=== PATIENT | male | born 1990 | race Two or more races ===

== ENCOUNTER 2018-01-24 17:18 | Inpatient (IN) ==
[2018-01-24 18:16] LABS: Baso # (Auto) 0.2 th/mm3 (0.0-0.2); Baso % (Auto) 1.3 % (0.0-2.0); Eos # (Auto) 0.1 th/mm3 (0.0-0.4); Eos % (Auto) 0.8 % (0.0-4.0); Hematocrit 46.2 % (39.0-51.0); Hemoglobin 15.7 gm/dL (13.0-17.0); Lymph # (Auto) 1.7 th/mm3 (1.0-4.8); Lymph % (Auto) 11.3 % (9.0-44.0); Mean Corpuscular Hemoglobin 31.5 pg (27.0-34.0); Mean Corpuscular Volume 92.6 fL (80.0-100.0); Mean Platelet Volume 7.4 fL (7.0-11.0); Mono % (Auto) 6.5 % (0.0-8.0); Neut # (Auto) 12.4 th/mm3 (1.8-7.7); Neut % (Auto) 80.1 % (16.0-70.0); Platelet Count 313 th/mm3 (150-450); Red Blood Count 4.99 mil/mm3 (4.50-5.90); Red Cell Distribution Width 11.5 % (11.6-17.2); White Blood Count 15.4 th/mm3 (4.0-11.0)
[2018-01-24 18:24] LABS: Chloride 104 meq/L (98-107); Potassium 3.8 meq/L (3.5-5.1); Sodium 139 meq/L (136-145)
--- NOTE | 2018-01-24 18:24 | XR ---
EXAM DATE: 01/24/2018 5:44 PM EDT AGE/SEX: 27 years / Male INDICATIONS: Patient has red, swollen right knee that is warm to touch, and no history of trauma. CLINICAL DATA: This is the patient's initial encounter. Patient reports that signs and symptoms have been present for 2 days and indicates a pain score of 10/10. MEDICAL/SURGICAL HISTORY: None. None. COMPARISON: No prior exams available for comparison. FINDINGS: There is no fracture or subluxation of the right knee. Prepatellar soft tissues are swollen and edema tous. No significant joint effusion demonstrated. CONCLUSION: Apparent prepatellar bursitis. No fracture or other bony abnormality demonstrated. Electronically signed by: Chao Nagel MD 01/24/2018 6:22 PM EDT
[2018-01-24 18:27] LABS: Anion Gap 12 meq/L (5-15); Blood Urea Nitrogen 6 mg/dL (7-18); Calcium 8.2 mg/dL (8.5-10.1); Glucose,Random 84 mg/dL (74-106)
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
[2018-01-24 18:31] LABS: Glomerular Filtration Rate Greater Than 89 mL/min (>89)
[2018-01-24] MEDS ORDERED: Morphine Inj 4 MG/ML Vial IV.PUSH ONE (18:41)
[2018-01-24] MEDS ORDERED: Vancomycin Consult Pharmacy OTHER PRN (18:53)
[2018-01-24] MEDS ORDERED: Vancomycin Inj 1 GM/200 ML PIGGYBACK IV.SIG SCH (19:00)
[2018-01-24] MEDS: Heparin - SQ 10,000 UNITS/ML Vial SQ SCH (19:13)
[2018-01-24] MEDS: Sod Chloride 0.9% Inj 1,000 ML IV.CONT SCH (19:13)
[2018-01-24] MEDS: Piperacil/Tazo 3.375 GM Premix 50 ML IV.SIG SCH (19:14)
[2018-01-24] MEDS: oxyCODONE/Acetaminophen 10/325 Tablet PO PRN (19:49)
[2018-01-24] MEDS: Vancomycin Inj 1,600 MG in Sodium Chlor 0.9% Inj 500 ML IV.SIG SCH (21:58)
[2018-01-25] MEDS: oxyCODONE/Acetaminophen 10/325 Tablet PO PRN ×5 (00:29→20:33)
[2018-01-25] MEDS: Melatonin 5 MG Tablet PO PRN ×2 (01:11→21:45)
[2018-01-25] MEDS: Piperacil/Tazo 3.375 GM Premix 50 ML IV.SIG SCH ×3 (04:28→20:31)
[2018-01-25 07:06] LABS: Baso # (Auto) 0.1 th/mm3 (0.0-0.2); Baso % (Auto) 0.4 % (0.0-2.0); Eos # (Auto) 0.1 th/mm3 (0.0-0.4); Eos % (Auto) 0.9 % (0.0-4.0); Hematocrit 41.5 % (39.0-51.0); Lymph # (Auto) 1.8 th/mm3 (1.0-4.8); Lymph % (Auto) 13.8 % (9.0-44.0); Mean Corpuscular HGB Conc 33.8 % (32.0-36.0); Mean Corpuscular Hemoglobin 31.4 pg (27.0-34.0); Mean Corpuscular Volume 92.9 fL (80.0-100.0); Mean Platelet Volume 7.9 fL (7.0-11.0); Mono # (Auto) 1.1 th/mm3 (0.0-0.9); Mono % (Auto) 8.7 % (0.0-8.0); Neut # (Auto) 9.6 th/mm3 (1.8-7.7); Neut % (Auto) 76.2 % (16.0-70.0); Platelet Count 289 th/mm3 (150-450); Red Blood Count 4.46 mil/mm3 (4.50-5.90); Red Cell Distribution Width 11.3 % (11.6-17.2); White Blood Count 12.7 th/mm3 (4.0-11.0)
[2018-01-25 07:19] LABS: Chloride 103 meq/L (98-107); Potassium 3.6 meq/L (3.5-5.1); Sodium 138 meq/L (136-145)
[2018-01-25 07:26] LABS: Albumin 3.1 g/dL (3.4-5.0); Anion Gap 9 meq/L (5-15); Calcium 8.1 mg/dL (8.5-10.1); Carbon Dioxide 26.3 meq/L (21.0-32.0); Glucose,Random 85 mg/dL (74-106)
[2018-01-25 07:29] LABS: Alanine Aminotransferase 18 U/L (12-78); Aspartate Aminotransferase 103 U/L (15-37); Glomerular Filtration Rate Greater Than 89 mL/min (>89)
[2018-01-25 07:30] LABS: Total Protein 7.6 g/dL (6.4-8.2)
[2018-01-25 07:31] LABS: Blood Urea Nitrogen 6 mg/dL (7-18)
[2018-01-25 07:32] LABS: Alkaline Phosphatase 77 U/L (45-117)
[2018-01-25] MEDS: Lactobacillus Acidophilus/L. Spores Tablet PO SCH ×3 (08:06→17:34)
[2018-01-25] MEDS: Heparin - SQ 10,000 UNITS/ML Vial SQ SCH ×2 (08:06→08:12)
[2018-01-25] MEDS: Sod Chloride 0.9% Inj 1,000 ML IV.CONT SCH (08:07)
[2018-01-25] MEDS: Vancomycin Inj 1,600 MG in Sodium Chlor 0.9% Inj 500 ML IV.SIG SCH ×2 (08:24→21:44)
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
[2018-01-25] MEDS ORDERED: Gadobutrol PF 10 MMOL/10 ML Vial (for RAD) IV.SIG ONE (15:06)
--- NOTE | 2018-01-25 15:52 | MR ---
EXAM DATE: 01/25/2018 1:53 PM EDT AGE/SEX: 27 years / Male INDICATIONS: Abscess. Post drainage procedure done yesterday. CLINICAL DATA: This is the patient's initial encounter. Patient reports that signs and symptoms have been present for 3 days and indicates a pain score of 9/10. MEDICAL/SURGICAL HISTORY: None. . Rt ankle sx. COMPARISON: [facility]PO, KNEE LIMITED LEFT 1/2V, 01/24/2018. . TECHNIQUE: Multiplanar, multisequence MRI examination was performed with contrast and after the intr avenous administration of 10 ml Gadavist (gadobutrol) contrast as a single exam dose. FINDINGS: Cruciate Ligaments: ACL and PCL are intact. Menisci: Medial and lateral menisci are intact. Collateral Ligaments: MCL and LCL complexes are intact. Marrow/Cartilage: Bone marrow signal is homogeneous and unremarkable. Articular cartilage is unrema rkable. Other: There is a small joint effusion. Extensor mechanism is intact. Post Contrast: There is a focal nonenhancing abscess in the anterior lateral soft tissues along the lateral margin of the patella. This measures up to 1.6 x 0.9 cm on the axial images there is intense surrounding enhancement. There is extensive surrounding soft tissue swelling. CONCLUSION: 1. Focal nonenhancing abscess in the anterior lateral soft tissues. There is extensive surrounding s oft tissue swelling. 2. Small joint effusion. Electronically signed by: Sathish Mi MD 01/25/2018 3:51 PM EDT
[2018-01-25] MEDS ORDERED: Sod Chloride 0.9% Inj 1,000 ML IV.CONT SCH (16:17)
[2018-01-25] MEDS: HYDROmorphone PF Inj 2 MG/ML Vial IV.PUSH PRN ×2 (16:25→21:45)
--- NOTE | 2018-01-25 17:19 | P.PN ---
Subjective Interval history: NOT SEEN Physical Exam Vital signs: Vital Signs 01/24/18 17:25 01/24/18 20:41 01/24/18 20:45 Temperature 99.2 F 98.8 F Pulse Rate 103 H 78 98 H Respiratory Rate 18 18 Blood Pressure 150/94 H 138/87 141/82 H Pulse Oximetry 98 98 97 01/25/18 00:00 01/25/18 08:00 01/25/18 12:55 Temperature 98.6 F 98.3 F 98.8 F Pulse Rate 93 H 82 88 Respiratory Rate 20 16 16 Blood Pressure 133/63 123/84 125/70 Pulse Oximetry 98 98 100 Intake & Output 01/24/18 01/25/18 01/25/18 18:59 06:59 18:59 Intake Total 1576 / 1576 2065 / 2065 Output Total 500 / 500 650 / 650 Balance 1076 / 1076 1416 / 1416 Weight 99.2 kg 95 kg Intake: IV 616 / 616 2065 NS Inj 1,000 ML @ 75 mls/hr IV. 1500 / 1500 CONT .[id number] [facility] Rx#: [id number] Zosyn 3.375 GM Premix 50 ML @ 100 / 100 50 / 50 100 mls/hr IV.SIG Q8H [facility] Rx#: [id number] Vancomycin Inj 1,600 MG In NS 516 / 516 516 / 516 Inj 500 ML @ 250 mls/hr IV.SIG Q12H [facility] Rx#:[id number] Oral 960 / 960 Output: Urine 500 / 500 650 / 650 Other: Weight On Admission 97.6 kg Narrative: GENERAL: NAD, A&Ox3 HEAD: Normocephalic. NECK: Supple, trachea midline. No lymphadenopathy. EYES: No scleral icterus. No injection or drainage. CARDIOVASCULAR: Regular rate and rhythm without murmurs, gallops, or rubs. RESPIRATORY: Breath sounds equal bilaterally. No accessory muscle use. GASTROINTESTINAL: Abdomen soft, non-tender, nondistended. MUSCULOSKELETAL: No cyanosis, or edema. SKIN: Warm and dry. erythema, induration, and drainage of right knee, superior to the patella and lateral. NEURO: No focal neurological deficits. Results - Labs CBC & Chem 7: 01/25/18 05:34 01/25/18 05:34 Laboratory Results - last 24 hr 01/24/18 01/24/18 01/24/18 18:05 18:05 18:05 CBC w Diff Auto diff final WBC 15.4 H RBC 4.99 Hgb 15.7 Hct 46.2 MCV 92.6 MCH 31.5 MCHC 34.0 RDW 11.5 L Plt Count 313 MPV 7.4 Neut % (Auto) 80.1 H Lymph % (Auto) 11.3 [place] % (Auto) 6.5 Eos % (Auto) 0.8 Baso % (Auto) 1.3 Neut # (Auto) 12.4 H Lymph # (Auto) 1.7 [place] # (Auto) 1.0 H Eos # (Auto) 0.1 Baso # (Auto) 0.2 WBC Differential . Differential Comment . Sodium 139 Potassium 3.8 Chloride 104 Carbon Dioxide 23.0 Anion Gap 12 BUN 6 L Creatinine 0.74 Estimated GFR Greater than 89 Random Glucose 84 Lactic Acid 1.7 Calcium 8.2 L Total Bilirubin AST ALT Alkaline Phosphatase Total Protein Albumin 01/25/18 01/25/18 05:34 05:34 CBC w Diff Auto diff final WBC 12.7 H RBC 4.46 L Hgb 14.0 Hct 41.5 MCV 92.9 MCH 31.4 MCHC 33.8 RDW 11.3 L Plt Count 289 MPV 7.9 Neut % (Auto) 76.2 H Lymph % (Auto) 13.8 [place] % (Auto) 8.7 H Eos % (Auto) 0.9 Baso % (Auto) 0.4 Neut # (Auto) 9.6 H Lymph # (Auto) 1.8 [place] # (Auto) 1.1 H Eos # (Auto) 0.1 Baso # (Auto) 0.1 WBC Differential . Differential Comment . Sodium 138 Potassium 3.6 Chloride 103 Carbon Dioxide 26.3 Anion Gap 9 BUN 6 L Creatinine 0.65 Estimated GFR Greater than 89 Random Glucose 85 Lactic Acid Calcium 8.1 L Total Bilirubin 0.9 AST 103 H ALT 18 Alkaline Phosphatase 77 Total Protein 7.6 Albumin 3.1 L Microbiology 01/24/18 17:58 Abscess - Knee Gram Stain - Final 01/24/18 17:58 Abscess - Knee Wound Culture - Preliminary S. aureus MRSA Group A beta Strep 01/24/18 18:00 Blood - Peripheral Aerobic Blood Culture - Preliminary No growth in 1 day 01/24/18 18:00 Blood - Peripheral Anaerobic Blood Culture - Preliminary No growth in 1 day 01/24/18 18:05 Blood - Peripheral Aerobic Blood Culture - Preliminary No growth in 1 day 01/24/18 18:05 Blood - Peripheral Anaerobic Blood Culture - Preliminary No growth in 1 day - Imaging Impressions Knee X-Ray 01/24/18 17:44 CONCLUSION: Apparent prepatellar bursitis. No fracture or other bony abnormality demonstrated. Knee MRI 01/25/18 00:00 CONCLUSION: 1. Focal nonenhancing abscess in the anterior lateral soft tissues. There is extensive surrounding soft tissue swelling. 2. Small joint effusion. Assessment and Plan - Assessment (1) Cellulitis of knee, right Code(s): L03.115 - Cellulitis of right lower limb Status: Acute (2) Leukocytosis Code(s): D72.829 - Elevated white blood cell count, unspecified Status: Acute - Plan 27-year-old male admitted secondary to acute cellulitis Acute cellulitis right knee Leukocytosis Possible abscess Obtain MRI to evaluate for deep abscess Continue vancomycin Monitor clinically for improvement Probiotics As needed pain treatments Consider surgical consult if drainage is needed Monitor cultures DVT prophylaxis Heparin (2) Leukocytosis Qualifiers: Leukocytosis type: unspecified Qualified Code(s): D72.829 - Elevated white blood cell count, unspecified
[2018-01-26] MEDS: oxyCODONE/Acetaminophen 10/325 Tablet PO PRN ×3 (00:39→08:44)
[2018-01-26] MEDS: HYDROmorphone PF Inj 2 MG/ML Vial IV.PUSH PRN ×2 (01:32→05:53)
[2018-01-26] MEDS: Piperacil/Tazo 3.375 GM Premix 50 ML IV.SIG SCH (04:40)
[2018-01-26 08:25] VITALS: BP 134/68; PULSE 81; RESP 18; TEMP 96.7; O2SAT 100
[2018-01-26] MEDS: Vancomycin Inj 1,600 MG in Sodium Chlor 0.9% Inj 500 ML IV.SIG SCH (08:43)
[2018-01-26] MEDS: Lactobacillus Acidophilus/L. Spores Tablet PO SCH (08:44)
[2018-01-26] MEDS ORDERED: Pharmacy Ordered Lab Info OTHER ONE (08:45)
--- NOTE | 2018-01-26 10:29 | P.PN ---
Subjective Interval history: Follow-up right knee cellulitis/abscess. States he is doing okay. Redness and swelling much improved about 75% better. Pain also under control. Patient advised not to return to work (he is a experimental outboard motors mechanic) until seen by his primary care physician Physical Exam Vital signs: Vital Signs 01/25/18 12:55 01/25/18 19:05 01/25/18 20:00 Temperature 98.8 F 96.7 F L 98.9 F Pulse Rate 88 88 94 H Respiratory Rate 16 18 20 Blood Pressure 125/70 139/90 133/76 Pulse Oximetry 100 99 99 01/26/18 00:00 01/26/18 08:00 Temperature 98.6 F 96.7 F L Pulse Rate 81 Respiratory Rate 20 18 Blood Pressure 130/59 L 134/68 Pulse Oximetry 97 100 Intake & Output 01/25/18 01/26/18 01/26/18 18:59 06:59 18:59 Intake Total 206 / 6 1336 / 1336 Output Total 650 / 650 Balance 1416 / 1416 1336 / 1336 Weight 95.2 kg Intake: IV 2065 / 6 616 / 616 NS Inj 1,000 ML @ 75 mls/hr IV. 1500 / 1500 CONT .[id number] [facility] Rx#: [id number] Zosyn 3.375 GM Premix 50 ML @ 50 / 50 100 / 100 100 mls/hr IV.SIG Q8H [facility] Rx#: [id number] Vancomycin Inj 1,600 MG In NS 516 / 516 516 / 516 Inj 500 ML @ 250 mls/hr IV.SIG Q12H [facility] Rx#:[id number] Oral 720 / 720 Output: Urine 650 / 650 Other: # Voids 2 Narrative: GENERAL: NAD, A&Ox3 CARDIOVASCULAR: Regular rate and rhythm without murmurs, gallops, or rubs. RESPIRATORY: Breath sounds equal bilaterally. No accessory muscle use. GASTROINTESTINAL: Abdomen soft, non-tender, nondistended. MUSCULOSKELETAL: No cyanosis, or edema. Full range of movement right knee SKIN: Warm and dry. Much improved erythema and induration with minimal bloody drainage of right knee, superior to the patella and lateral. NEURO: No focal neurological deficits. Results - Labs CBC & Chem 7: 01/25/18 05:34 01/25/18 05:34 Microbiology 01/24/18 17:58 Abscess - Knee Gram Stain - Final 01/24/18 17:58 Abscess - Knee Wound Culture - Final S. aureus MRSA Group A beta Strep 01/24/18 18:00 Blood - Peripheral Aerobic Blood Culture - Preliminary No growth in 1 day 01/24/18 18:00 Blood - Peripheral Anaerobic Blood Culture - Preliminary No growth in 1 day 01/24/18 18:05 Blood - Peripheral Aerobic Blood Culture - Preliminary No growth in 1 day 01/24/18 18:05 Blood - Peripheral Anaerobic Blood Culture - Preliminary No growth in 1 day - Imaging Impressions Knee MRI 01/25/18 00:00 CONCLUSION: 1. Focal nonenhancing abscess in the anterior lateral soft tissues. There is extensive surrounding soft tissue swelling. 2. Small joint effusion. - Procedures Incision and drainage right knee abscess Assessment and Plan - Assessment (1) Cellulitis of knee, right Code(s): L03.115 - Cellulitis of right lower limb Status: Acute (2) Leukocytosis Code(s): D72.829 - Elevated white blood cell count, unspecified Status: Acute - Plan 27-year-old male admitted secondary to acute cellulitis Acute cellulitis and abscess right knee status post I&D. Leukocytosis Culture with MRSA and group A beta strep. Clinically looks much improved continue wound care, antibiotics switched to p.o. doxycycline and Bactrim and pain medicine counseled regarding narcotics. E force queried. DVT prophylaxis Heparin Discharge Planning: Discharge patient to home Condition on discharge: Improved Regular Diet as tolerated Ad Sidra activity Rx written: Doxycycline, Bactrim, Percocet and Bactroban cream Follow-up with primary care physician (2) Leukocytosis Qualifiers: Leukocytosis type: unspecified Qualified Code(s): D72.829 - Elevated white blood cell count, unspecified
== END 2018-01-26 11:19 | disposition home or self-care (01) ==
LOC: PHED 17:18 → PH3 18:56
PROVIDERS: ADMIT Internal Medicine; ATTEND Internal Medicine